=== PATIENT | female | born 1965 | race Caucasian/White ===

== ENCOUNTER 2016-05-22 15:49 | Emergency (ER) | payer OTHER ==
[~2016-05-22] VITALS: Ht 167.6 cm; Wt 92.3 kg
[~2016-05-22 15:49] MED LIST: ALBUTEROL17 GM; ALBUTEROL2.5 MG/3 M IH; MELOXICAM7.5 MG PO; PREDNISONE50 MG PO; SPIRIVA1 INHALATI IH
[2016-05-22 16:46] LABS: HEMATOCRIT 44.5 % (36.0-46.0); MCHC 33.9 G/DL (30.0-36.0); MCV 88.5 FL (83-99); RBC DIS.WIDTH-SD 38.5 % (39-53); RED BLOOD COUNT 5.03 M/uL (3.80-5.20); WHITE BLOOD COUNT 16.7 K/uL (4.1-10.2)
[2016-05-22 16:58] LABS: CHLORIDE 107 mEq/L (99-109); SODIUM 140 mEq/L (136-147)
[2016-05-22 17:00] LABS: GLUCOSE 101 mg/dL (70-99)
[2016-05-22 17:01] LABS: ANION GAP 10 MEQ/L (2-14)
[2016-05-22 17:03] LABS: GFR ESTIMATE (CALCULATED) > 59 mL/min/
[2016-05-22 17:04] LABS: UREA NITROGEN (BUN) 11 mg/dL (9-23)
[2016-05-22 17:37] LABS: HEMATOLOGY COMMENT 1 SN; PLAT.SUFFICIENCY ADEQUATE; PLATELET COUNT 343 K/uL (156-360)
[2016-05-22] MEDS ORDERED: DUONEB 2.5-0.5 M3 ML AEROSOL (19:10)
[2016-05-22 19:45] VITALS: BP 114/77
== END 2016-05-22 19:46 | disposition home or self-care (01) ==
LOC: EME 15:49
DX: J40 Bronchitis, not specified as acute or chronic (principal); J44.1 Chronic obstructive pulmonary disease with (acute) exacerbation; F17.200 Nicotine dependence, unspecified, uncomplicated
CPT/HCPCS: 71020; 80048; 85027; 94640; 99281; 99284; J1100

== ENCOUNTER → 2016-08-15 | Outpatient (CLI) | payer OTHER ==
[~2016-08-15] MED LIST changes: +DUONEB 2.5-0.5 M3 ML AEROSOL
== END | disposition home or self-care (01) ==
LOC: RES 07:34
DX: Z02.71 Encounter for disability determination (principal)
CPT/HCPCS: 94060; 94729; 94760

== ENCOUNTER 2017-06-10 08:35 | Day surgery (SDC) | payer OTHER ==
[~2017-06-10] VITALS: Ht 167.6 cm; Wt 104.4 kg
[~2017-06-10 08:35] MED LIST changes: +ADVAIR 500/501 DISK IH; +INCRUSE ELLI62.5 MCG IH; +NICODERM CQ1 EAC2 TD; +PROAIR HFA8.5 GM IH; +RESTORIL15 MG PO; +THEOPHYLLINE600 MG PO; +VENTOLIN HFA18 GM IH; +WELLBUTRIN SR150 MG PO
[2017-06-10 09:08] VITALS: BP 139/84
[2017-06-10 11:30] VITALS: BP 126/78
[2017-06-10 12:30] VITALS: BP 125/69
== END 2017-06-10 12:55 | disposition home or self-care (01) ==
LOC: SDC 08:35
DX: N95.0 Postmenopausal bleeding (principal); J44.9 Chronic obstructive pulmonary disease, unspecified; E66.9 Obesity, unspecified; F17.200 Nicotine dependence, unspecified, uncomplicated; Z99.81 Dependence on supplemental oxygen; Z82.0 Family history of epilepsy and other diseases of the nervous system; Z68.37 Body mass index [BMI] 37.0-37.9, adult
CPT/HCPCS: 87641; 88305; J0131; J2250; J3010; S0020